=== PATIENT | male | born 1945 | race Caucasian/White ===

== ENCOUNTER 2021-09-18 06:52 | Inpatient (IN) | payer OTHER ==
[~2021-09-18] VITALS: Ht 180.3 cm; Wt 92.5 kg
[2021-09-18 07:30] LABS: HEMOGLOBIN 16.3 gm/dl (14.0-17.5); RED BLOOD COUNT 5.2 M/UL (4.20-5.50); WHITE BLOOD COUNT 13.7 K/UL (4.5-11.0)
[2021-09-18 07:49] LABS: BUN/CREATININE RATIO 11 (0-10)
[2021-09-18] MEDS ORDERED: ZESTRIL10 MG PO (11:10)
[2021-09-18] MEDS ORDERED: QUETIAPINE FUM300 MG PO (11:10)
[2021-09-18] MEDS ORDERED: OMEPRAZOLE20 MG PO (11:10)
[2021-09-18] MEDS ORDERED: ZOCOR80 MG PO (11:11)
[2021-09-18] MEDS ORDERED: TRAZODONE HCL50 MG PO (11:11)
[2021-09-18] MEDS ORDERED: VITAMIN D325 MCG PO (11:12)
[2021-09-19 04:10] LABS: HEMOGLOBIN 16.5 gm/dl (14.0-17.5); RED BLOOD COUNT 5.03 M/UL (4.20-5.50); WHITE BLOOD COUNT 11.7 K/UL (4.5-11.0)
[2021-09-20 03:42] LABS: BUN/CREATININE RATIO 17 (0-10)
[2021-09-21 06:30] LABS: HEMOGLOBIN 15.3 gm/dl (14.0-17.5); RED BLOOD COUNT 4.73 M/UL (4.20-5.50)
[2021-09-21] MEDS ORDERED: NITROGLYCERIN0.4 MG SL (11:33)
[2021-09-21] MEDS ORDERED: ASPIRIN EC81 MG PO (11:33)
--- NOTE | 2021-09-21 14:58 | NUR ---
POST CATH VITALS AND TR BAND RELEASE 1010 P 71 RESP18 02 96% B/P 103/78 1025 P71 RESP 18 02 96% B/P 125/76 1040 P 79 RESP 18 02 95% B/P 123/78 1055 P 71 RESP 18 02 98% B/P 95/64 1125 P 77 RESP 18 02 97% B/P 107/65 1155 P73 RESP 20 02 97% B/P113/68 1255 P70 RESP 18 02 SATS 98% B/P 120/70 1355 P 73 RESP 20 SATS 97% B/P 126/86 1055 2 OF AIR RELEASED NO BLEEDING 1110 2 OF AIR RELEASED NO BLEEDING 1125 2 OF AIR RELEASED NO BLEEDING 1135 2 OF AIR RELEASED NO BLEEDING 1145 2 OF AIR RELEASED NO BLEEDING 1155 2 OF AIR RELEASED NO BLEEDING
== END 2021-09-21 14:23 | disposition home or self-care (01) | DRG 287 ==
LOC: ER1 06:52 → CDU 09:55 → MED SURG 4 11:04
PROVIDERS: Emergency Medicine; Internal Medicine Cardiovascular Disease; Physician Assistant; ADMIT Internal Medicine
PROC: B24BZZZ Ultrasonography of Heart with Aorta (ICD-10-PCS; principal; 2021-09-18)
PROC: 4A023N7 Measurement of Cardiac Sampling and Pressure, Left Heart, Percutaneous Approach (ICD-10-PCS; 2021-09-21)
PROC: B2111ZZ Fluoroscopy of Multiple Coronary Arteries using Low Osmolar Contrast (ICD-10-PCS; 2021-09-21)
DX: R07.89 Other chest pain (principal); I10 Essential (primary) hypertension; E78.5 Hyperlipidemia, unspecified; Z20.822 Contact with and (suspected) exposure to COVID-19; K21.9 Gastro-esophageal reflux disease without esophagitis; G89.29 Other chronic pain; I07.1 Rheumatic tricuspid insufficiency; F43.10 Post-traumatic stress disorder, unspecified; M54.50 Low back pain, unspecified; F17.210 Nicotine dependence, cigarettes, uncomplicated; Z79.01 Long term (current) use of anticoagulants; Z79.82 Long term (current) use of aspirin; Z82.49 Family history of ischemic heart disease and other diseases of the circulatory system
CPT/HCPCS: ECHO; 36415; 71045; 71046; 78452; 80048; 80053; 82550; 82553; 83874; 84484; 85025; 85027; 93005; 93017; 93306; 99152; 99285; A9502; C1769; C1894; G0378; G0480; J1644; J2250; J2785; J3010; J7040; Q9967; U0002

== ENCOUNTER 2021-09-28 16:53 | Emergency (ER) | payer OTHER ==
[~2021-09-28 16:53] MED LIST: ASPIRIN EC81 MG PO; NITROGLYCERIN0.4 MG SL; OMEPRAZOLE20 MG PO; QUETIAPINE FUM300 MG PO; TRAZODONE HCL50 MG PO; VITAMIN D325 MCG PO; ZESTRIL10 MG PO; ZOCOR80 MG PO
[2021-09-28 17:55] LABS: HEMOGLOBIN 15.9 gm/dl (14.0-17.5); RED BLOOD COUNT 5.09 M/UL (4.20-5.50); WHITE BLOOD COUNT 10.8 K/UL (4.5-11.0)
[2021-09-28 18:20] LABS: BUN/CREATININE RATIO 10 (0-10)
== END 2021-09-28 19:50 | disposition home or self-care (01) ==
LOC: ER1 16:53
PROVIDERS: Emergency Medicine
DX: R20.0 Anesthesia of skin (principal); F17.200 Nicotine dependence, unspecified, uncomplicated
CPT/HCPCS: 70450; 72131; 80053; 82550; 82553; 82962; 84484; 85025; 93005; 99284